=== PATIENT | male | born 1980 | race African-American/Black ===

== ENCOUNTER 2017-11-17 17:58 | Emergency (ER) | payer SELFPAY ==
[~2017-11-17] VITALS: Ht 238.8 cm; Wt 64.0 kg
[2017-11-17] MEDS ORDERED: VISCOUS LIDOCAINE 2% 15 ML UDC PO STA (22:13)
[2017-11-17] MEDS ORDERED: SODIUM CHLORIDE 0.9% 1,000 ML IV ONE (22:13)
[2017-11-17] MEDS ORDERED: ONDANSETRON HCL 4MG/2ML INJ IV STA (22:13)
[2017-11-17] MEDS ORDERED: MAGNESIUM/ALUMINUM HYDROXIDE/SIMETHICONE 30ML UDC PO STA (22:13)
[2017-11-17] MEDS ORDERED: FAMOTIDINE 20MG/2ML VIAL IV ONE (22:15)
[2017-11-17 23:28] LABS: BASOPHILS % 0.9 % (0.0-2.0); CHLORIDE 99 mEq/L (98-107); EOSINOPHILS % 0.1 % (0.0-5.0); HEMATOCRIT. 45.1 % (42.0-52.0); LYMPHOCYTES % 24.5 % (20.0-50.0); MEAN CORPUSCULAR HEMOGLOBIN 31.1 pg (28.0-32.0); MEAN CORPUSCULAR VOLUME 87.8 fL (80.0-94.0); MEAN PLATELET VOLUME 8.2 fl (7.4-10.4); MONOCYTES % 5.6 % (2.0-8.0); NEUTROPHILS % 68.9 % (40.0-76.0); PLATELET 276 x1000/uL (130-400); RED BLOOD CELL COUNT 5.14 mill/uL (4.7-6.1); RED CELL DISTRIBUTION WIDTH 13.1 % (11.6-14.6)
[2017-11-17 23:32] LABS: ETHANOL BLOOD < 10 mg/dL
[2017-11-18 01:05] VITALS: BP 112/64
== END 2017-11-18 01:09 | disposition home or self-care (01) ==
LOC: ER 17:58
DX: K29.70 Gastritis, unspecified, without bleeding (principal); F12.10 Cannabis abuse, uncomplicated; Z90.49 Acquired absence of other specified parts of digestive tract
CPT/HCPCS: 36415; 80053; 83690; 85025; 96361; 96374; 96375; 99284; G0482; J2405; J3490; J7030